=== PATIENT | female | born 1965 | race African-American/Black ===

== ENCOUNTER 2020-12-14 14:12 | Emergency (ER) | payer MEDICAID, OTHER, SELFPAY ==
[~2020-12-14] VITALS: Ht 175.3 cm; Wt 88.5 kg
[2020-12-14 14:29] VITALS: BP 161/99
--- NOTE | 2020-12-14 14:40 | NUR ---
AT BS. CALL LIGHT WITHIN REACH. NO NEEDS AT THIS TIME
[2020-12-14] MEDS ORDERED: IBUPROFEN 600 MG TABLET ONE (14:44)
[2020-12-14] MEDS ORDERED: MULT-658 PO (14:48)
[2020-12-14] MEDS ORDERED: IBUPROFEN 200 MG TABLET PO ONE (15:00)
--- NOTE | 2020-12-14 15:09 | NUR ---
Patient given discharge instructions and they have confirmed that they understand the instructions. Patient ambulatory with steady gait.
== END 2020-12-14 15:10 | disposition home or self-care (01) ==
LOC: ED 14:58
DX: S16.1XXA Strain of muscle, fascia and tendon at neck level, initial encounter (principal); V49.09XA Driver injured in collision with other motor vehicles in nontraffic accident, initial encounter; Y93.89 Activity, other specified; Y92.488 Other paved roadways as the place of occurrence of the external cause; Y99.8 Other external cause status
CPT/HCPCS: 99282